=== PATIENT | male | born 1990 | race Caucasian/White ===

== ENCOUNTER 2021-06-30 12:01 | Emergency (ER) | payer MEDICAID, SELFPAY ==
--- NOTE | 2021-06-30 | ECG_ITS ---
Test Reason : NOT FEELING WELL Blood Pressure : / mmHG Vent. Rate : 113 BPM Atrial Rate : 113 BPM P-R Int : 136 ms QRS Dur : 116 ms QT Int : 350 ms P-R-T Axes : 034 -06 002 degrees QTc Int : 480 ms Sinus tachycardia Left ventricular hypertrophy with QRS widening ( R in aVL , [employer] product ) Abnormal ECG No previous ECGs available Referred By: Generic ED Physician Electronically Signed By:SADA TERRY MD
--- NOTE | ~2021-06-30 | XR_ITS ---
EXAMINATION: XR CHEST CLINICAL INFORMATION: Shortness of breath, cough COMPARISON: None TECHNIQUE: Frontal view of the chest was obtained. FINDINGS: There is subtle groundglass opacity mid right lung zone. The remainder of the lungs are clear. There is no lobar or segmental airspace consolidation or effusion. The costophrenic sulci are well-defined. The heart is normal in size. The hilar and mediastinal contours are unremarkable. XR/XR chest 1V IMPRESSION: Groundglass opacity mid right lung zone. No lobar or segmental airspace consolidation or effusion.
[2021-06-30 12:45] VITALS: BP 144/96; PULSE 120; RESP 17; TEMP 37.4; O2SAT 98; BMI 44.7
[2021-06-30 13:45] LABS: COVID-19 Test Positive (Negative)
--- NOTE | 2021-06-30 14:57 | ED.URI ---
HPI - URI/Sore Throat General Chief Complaint: Upper Respiratory Symptoms Stated Complaint: covid symptoms Time Seen by Provider: 06/30/21 14:00 Source: patient Mode of arrival: ambulatory Limitations: no limitations History of Present Illness HPI Narrative: 30-year-old male no known medical history presents to the emergency department with 4 days of progressively worsening cough, shortness of breath, fevers, chills and malaise. Patient tells me that he woke up on Saturday with a fever 101.0 F, ever since then he has been feeling unwell, he tells me that his cough has been intermittent in nature, he has been coughing up a thick white/clear mucus. He has been having intermittent fevers Tmax 102.0F. He becomes short of breath with ambulation, or wearing a mask. He tells me that he has also felt like his heart is racing. He is not vaccinated against COVID-19. He denies chest pain, nausea, vomiting, abdominal pain, weakness, dizziness, headache. MD elicited complaint: fever and cough Onset (ago): day(s) (4) Consistency: constant Severity: severe Description of mucous: clear and other (yellowish) Able to tolerate fluids by mouth: Yes Exacerbating factors: nothing Relieving factors: nothing Associated symptoms: fever, chills, diaphoresis and shortness of breath Treatments prior to arrival: none Related Data Previous Rx's Medication Instructions Recorded acetaminophen 325 mg capsule 650 mg PO Q6H PRN #20 cap 06/30/21 azithromycin 250 mg tablet See Rx Instructions PO .COMPLEX #6 06/30/21 tab Allergies Allergy/AdvReac Type Severity Reaction Status Date / Time amoxicillin [AMOXICILLIN] Allergy Unknown UNKNOWN Verified 06/30/21 12:45 penicillin V Allergy Unknown Unknown Verified 06/30/21 12:45 Penicillins [PENICILLINS] Allergy Unknown SWELLING Verified 06/30/21 12:45 Review of Systems Review of Systems: Constitutional : No Weight loss, + Fever, No Chills, No Fatigue, + Malaise, + night sweats ENT/Mouth : No sore throat, No Rhinorrhea, + loss of taste and smell Eyes: No Eye Pain, No Swelling, No Redness Cardiovascular : No Chest Pain, No SOB, No Dyspnea on Exertion, No Orthopnea, No Edema, + Palpitations Respiratory : + Cough, + Sputum, No Wheezing Gastrointestinal : No Nausea, No Vomiting, No Diarrhea, No Constipation, No abdominal Pain, No Hematochezia, No Melena Genitourinary : No Dysuria, No Urinary Frequency, No Hematuria, Musculoskeletal : No joint pain, No Myalgias, No Joint Swelling Skin : No Skin Lesions, No rash, + diaphoresis Neuro : No Weakness, No Numbness, No Dizziness, No Headache All other systems reviewed and are negative [facility] Past Medical History Attestation statement: The following information was validated with the patient. Source: old records reviewed and nursing notes reviewed Social History Social History Advance Directives: No Physical Exam Vital Signs: Vital Signs: Last Vital Signs Temp 99.3 F 06/30/21 12:45 Pulse 120 H 06/30/21 12:45 Resp 17 06/30/21 12:45 BP 144/96 H 06/30/21 12:45 Pulse Ox 98 06/30/21 12:45 Body Mass Index 44.7 Vital signs significant for HTN and tachycardia Appearance: Alert.? Oriented X3.? No acute distress.?Patient appears diaphoretic Head: Normocephalic, atraumatic, no step-offs or deformities Eyes: Pupils equal, round and reactive to light.? ENT: Pharynx normal.? Neck: Normal inspection.? Neck supple.? CVS: rapid heart rate and normal rhythm.? Pulses normal.? Respiratory: No respiratory distress.? Breath sounds slightly diminished bilaterally.? Abdomen: Soft and nontender.? Skin: Skin warm and dry.? Normal skin color.? Normal skin turgor.? Extremities: No lower extremity edema.? No calf ttp. 5/5 strength to bilateral upper and lower extremities Back: No midline tenderness, no C-spine tenderness, full range of motion, no CVA tenderness bilaterally Neuro: Oriented X 3.? No motor deficit.? No sensory deficit. Course Reevaluation(s) Reevaluation #1: Covid + brookeley responsible for patients symptoms. Cxray and EKG pending. Time: 15:00 Reevaluation #2: Chest x-ray shows ground-glass opacities, consistent with COVID-19 PNA. EKG- sinus tahcycardia Time: 15:54 Reevaluation #3: Ambulatory O2 96%. At this time patient's symptoms are likely secondary to COVID pneumonia. However, patient remains tachycardic, will order basic labs and d-dimer to r/o PE. Time: 16:20 Additional Reevaluation(s): 1718 Leukopenia noted, no electrolyte abnormalities, D-dimer less than 150, low suspicion for PE. At this time patient is safe for discharge home. He will be discharged home on azithromycin for COVID pneumonia. Patient has been given strict return precautions. He should follow-up with his PCP as soon as possible, he is safe for discharge home with PCP follow-up. Repeat vitals much better: BP 135/86 RR: 16 O2:98%RA Ambulatory O2:96%RA, RI 100 MDM - URI/Sore Throat MDM Narrative Medical decision making narrative: 1500 30-year-old male no known pmhx presents to the ED with productive cough of white/clear sputum, SOB, palpitations, fevers (Tmax 102F) and diaphoresis X4 days progressivly worsening. Not vaccinated. No chest pain. Upon physical examination patient appears diaphoretic, and ill appearing. S1-S2 appreciated with a regular rapid rhythm, likely sinus tachycardia. Lungs w/ diminished breathsounds bilaterally. Abdomen soft nontender nondistended. Moist mucous membranes. Extraocular movements intact. No neck pain./. No meningeal sings, No focal neuro deficits. 5/5 strength upper and lower extremities. 2+ reflexes equal bilateral. Cap refil <2 seconds. Plan at this time is to obtain a chest x-ray to rule out pneumonia. Obtain an EKG d/t palpitations and covid test. Medical Records Attestation: I reviewed the patient's medical records. Lab Data Attestation: I reviewed the patient's lab results. Result diagrams: 06/30/21 16:45 06/30/21 16:45 Labs: Lab Results 06/30/21 06/30/21 06/30/21 Range/Units 13:25 16:45 16:45 WBC 4.3 L (4.8-10.8) X10*3/uL RBC 5.54 (4.60-5.80) X10*6/uL Hgb 16.2 (14.0-18.0) g/dl Hct 47.9 (42.0-52.0) % MCV 86.5 (80.0-98.0) fL MCH 29.2 (27.0-33.0) pg MCHC 33.8 (31.0-36.0) g/dl RDW 12.7 (11.0-16.0) % Plt Count 185 (160-400) X10*3/uL MPV 10.3 (9.4-12.4) fL Immature Gran % (Auto) 0.5 H (0.0-0.4) % Neut % (Auto) 59.9 (45-73) % Lymph % (Auto) 24.6 (20-40) % [place] % (Auto) 14.8 H (2-11) % Eos % (Auto) 0.0 (0-4) % Baso % (Auto) 0.2 (0-2) % Lymph # (Auto) 1.1 L (1.2-4.9) X10*3/uL [place] # (Auto) 0.6 (0.1-1.2) X10*3/uL Eos # (Auto) 0.0 (0.0-0.4) X10*3/uL Baso # (Auto) 0.0 (0.0-0.2) X10*3/uL Abs Immat Gran (auto) 0.02 (0.00-0.03) X10*3/uL Absolute Neuts (auto) 2.6 (2.0-8.3) x10*3/uL Absolute Nucleated RBC 0.000 (0.0-0.012) X10*3/uL Nucleated RBC % (auto) 0.0 (0.0-0.2) /100WBC D-Dimer High Sensitivty < 150 NG/ML Sodium (135-145) mmol/L Potassium (3.3-5.1) mmol/L Chloride (96-108) mmol/L Carbon Dioxide (22-29) mmol/L Anion Gap (12-20) BUN (9-16) mg/dL Creatinine (0.5-1.4) mg/dL Estim Creat Clear Calc Estimated GFR Random Glucose (60-115) mg/dL Calcium (8.4-10.2) mg/dL Magnesium (1.6-2.6) mg/dL Total Bilirubin (0.0-1.0) mg/dL AST (5-37) U/L ALT (0-40) U/L Alkaline Phosphatase (39-117) U/L Total Protein (6.5-8.0) g/dL Albumin (3.5-5.0) g/dL COVID-19 (SAFIA) Positive A (Negative) COVID-19 Clin Com See Note 06/30/21 Range/Units 16:45 WBC (4.8-10.8) X10*3/uL RBC (4.60-5.80) X10*6/uL Hgb (14.0-18.0) g/dl Hct (42.0-52.0) % MCV (80.0-98.0) fL MCH (27.0-33.0) pg MCHC (31.0-36.0) g/dl RDW (11.0-16.0) % Plt Count (160-400) X10*3/uL MPV (9.4-12.4) fL Immature Gran % (Auto) (0.0-0.4) % Neut % (Auto) (45-73) % Lymph % (Auto) (20-40) % [place] % (Auto) (2-11) % Eos % (Auto) (0-4) % Baso % (Auto) (0-2) % Lymph # (Auto) (1.2-4.9) X10*3/uL [place] # (Auto) (0.1-1.2) X10*3/uL Eos # (Auto) (0.0-0.4) X10*3/uL Baso # (Auto) (0.0-0.2) X10*3/uL Abs Immat Gran (auto) (0.00-0.03) X10*3/uL Absolute Neuts (auto) (2.0-8.3) x10*3/uL Absolute Nucleated RBC (0.0-0.012) X10*3/uL Nucleated RBC % (auto) (0.0-0.2) /100WBC D-Dimer High Sensitivty NG/ML Sodium 135 (135-145) mmol/L Potassium 4.5 (3.3-5.1) mmol/L Chloride 103 (96-108) mmol/L Carbon Dioxide 19 L (22-29) mmol/L Anion Gap 18 (12-20) BUN 15 (9-16) mg/dL Creatinine 0.98 (0.5-1.4) mg/dL Estim Creat Clear Calc 162.9 Estimated GFR > 60 Random Glucose 106 (60-115) mg/dL Calcium 9.3 (8.4-10.2) mg/dL Magnesium 2.0 (1.6-2.6) mg/dL Total Bilirubin 0.4 (0.0-1.0) mg/dL AST 32 (5-37) U/L ALT 23 (0-40) U/L Alkaline Phosphatase 58 (39-117) U/L Total Protein 8.4 H (6.5-8.0) g/dL Albumin 4.5 (3.5-5.0) g/dL COVID-19 ([facility]IA) (Negative) COVID-19 Clin Com ECG Data Attestation: I personally reviewed and interpreted this ECG as follows: ECG interpretation time: 13:30 Prior ECG tracings: not available for review Interpretation: Ventricular rate of 113, RI normal, QRS normal, QT/QTC normal. EKG shows sinus tachycardia with left ventricular hypertrophy. No previous EKGs to compare with. No acute ischemia No ST elevations or inversions Critical Care Time Critical Care Time Critical Care Time: No Discharge Plan Discharge Clinical Impression: COVID-19, Pneumonia due to COVID-19 virus Patient Disposition: Home, Self-Care Instructions: COVID-19 (Coronavirus Disease 2019) (ED) Additional Instructions: Take your medications as prescribed. Today you tested positive for COVID-19. Take Ibuprofen or Tylenol as needed for fevers or body aches. Quarantine for 14 days if you are not vaccinated or for 10 days if you are vaccinated. Drink plenty of fluids. Follow-up with your primary care provider this week. Return to the emergency department with new or worsening symptoms. Such as worsening shortness of breath, fevers, chest pain, abdominal pain, nausea, vomiting, weakness In case of emergency call 911 Prescriptions: New acetaminophen 325 mg capsule 650 mg PO Q6H PRN (Reason: fever or pain) Qty: 20 RF: 0 azithromycin 250 mg tablet See Rx Instructions PO .COMPLEX Qty: 6 RF: 0 Referrals: [facility] [Primary Care Provider] - 2 days Stand Alone Forms: Work/School Release
[2021-06-30] MEDS: Acetaminophen 325 MG TABLET 650 MG PO (15:46)
[2021-06-30] MEDS: ondansetron HCL 4 MG/2 ML VIAL IVPUSH (16:37)
[2021-06-30] MEDS: 0.9 % Sodium Chloride 1,000 ML 999 ML IV (16:41)
[2021-06-30 16:51] LABS: MANUAL DIFF FLAG NO
[2021-06-30 16:52] LABS: Basophils Percent Auto 0.2 % (0-2); Hematocrit 47.9 % (42.0-52.0); Hemoglobin 16.2 g/dl (14.0-18.0); Imm Gran Abs Auto 0.02 X10*3/uL (0.00-0.03); Imm Gran Pct Auto 0.5 % (0.0-0.4); Lymphocytes Absolute Auto 1.1 X10*3/uL (1.2-4.9); Lymphocytes Percent Auto 24.6 % (20-40); Mean Corpuscular HGB Conc 33.8 g/dl (31.0-36.0); Mean Corpuscular Hemoglobin 29.2 pg (27.0-33.0); Mean Corpuscular Volume 86.5 fL (80.0-98.0); Mean Platelet Volume 10.3 fL (9.4-12.4); Monocytes Absolute Auto 0.6 X10*3/uL (0.1-1.2); Monocytes Percent Auto 14.8 % (2-11); Neutrophils Absolute Auto 2.6 x10*3/uL (2.0-8.3); Neutrophils Percent Auto 59.9 % (45-73); Platelet Count 185 X10*3/uL (160-400); Red Blood Count 5.54 X10*6/uL (4.60-5.80); Red Cell Distribution Width 12.7 % (11.0-16.0); White Blood Count 4.3 X10*3/uL (4.8-10.8)
[2021-06-30 17:02] LABS: D Dimer High Sensitivity < 150 NG/ML
[2021-06-30 17:14] LABS: Alanine Aminotransferase 23 U/L (0-40); Albumin Level 4.5 g/dL (3.5-5.0); Alkaline Phosphatase 58 U/L (39-117); Anion Gap 18 (12-20); Aspartate Amino Transferase 32 U/L (5-37); Bilirubin Total 0.4 mg/dL (0.0-1.0); Blood Urea Nitrogen 15 mg/dL (9-16); Calcium 9.3 mg/dL (8.4-10.2); Carbon Dioxide 19 mmol/L (22-29); Chloride 103 mmol/L (96-108); Creatinine Clr Calc Pharmacy 162.9; Estimated Glomerular Filt Rate > 60; Glucose Random 106 mg/dL (60-115); Potassium 4.5 mmol/L (3.3-5.1); Sodium 135 mmol/L (135-145); Total Protein 8.4 g/dL (6.5-8.0)
[2021-06-30] MEDS: Albuterol Sulfate 90 MCG 8 GM INHALER 2 PUFF INHALE (17:41)
== END 2021-06-30 17:43 | disposition home or self-care (01) ==
PROVIDERS: Physician Assistant; Emergency Provider Emergency Medicine
DX: U07.1 COVID-19 (principal); J12.82 Pneumonia due to coronavirus disease 2019; R06.02 Shortness of breath
CPT/HCPCS: 36415; 71045; 80053; 83735; 85025; 85379; 87635; 93005; 96361; 96374; 99284; J2405

== ENCOUNTER 2021-07-01 05:39 | Emergency (ER) | payer MEDICAID, SELFPAY ==
[2021-07-01 05:46] VITALS: BP 146/85; BP 170/93; PULSE 103; PULSE 95; RESP 20; O2SAT 96; O2SAT 97; BMI 44.7
--- NOTE | 2021-07-01 06:17 | ED_ITS ---
HPI - General Adult General Chief complaint: General Medical Stated complaint: chest pain (covid PNA) Time Seen by Provider: 07/01/21 06:06 Source: patient Mode of arrival: EMS History of Present Illness HPI narrative: This is a 30-year-old male without significant past medical history who was just diagnosed with COVID-19 earlier this evening and is unvaccinated. Patient states that he was suffering from anxiety as he feels that things were not well explained him. Patient has reproducible chest wall pain from coughing. Related Data Previous Rx's Medication Instructions Recorded acetaminophen 325 mg capsule 650 mg PO Q6H PRN #20 cap 06/30/21 azithromycin 250 mg tablet See Rx Instructions PO .COMPLEX #6 06/30/21 tab Allergies Allergy/AdvReac Type Severity Reaction Status Date / Time amoxicillin [AMOXICILLIN] Allergy Unknown UNKNOWN Verified 06/30/21 12:45 penicillin V Allergy Unknown Unknown Verified 06/30/21 12:45 Penicillins [PENICILLINS] Allergy Unknown SWELLING Verified 06/30/21 12:45 Review of Systems Review of Systems: Pertinent positives and negatives as stated in HPI 10 point review of systems is otherwise negative. PMFSH Past Medical History Source: nursing notes reviewed Social History Social History Alcohol intake: current Alcohol intake frequency: holidays/special occasions only Alcohol type: beer Patient Tobacco Use Status: Current someday Tobacco user Use of substances other than those prescribed or required for medical reasons: Yes Substance Use Type: Marijuana Substance Use Frequency: Occasionally Substance Use Frequency Other:: 2 Last Used Substance: Days (ago) Any prior treatment program specific to substance use: No Advance Directives: No Physical Exam Vital Signs: Vital Signs: Last Vital Signs Pulse 95 07/01/21 05:46 Resp 20 07/01/21 05:46 BP 146/85 H 07/01/21 05:46 Pulse Ox 96 07/01/21 05:46 Body Mass Index 44.7 VITAL SIGNS: Reviewed. GENERAL: Well developed, well nourished, in no acute distress. HEAD: Normocephalic/atraumatic EYES: PERRLA, EOMI OROPHARYNX: no oral lesions noted, posterior pharynx clear LUNGS: Normal breath sounds. No adventitious sounds or accessory muscle use. SpO2<96>, reproducible chest wall pain on palpation CARDIOVASCULAR: Regular rate and rhythm without noted murmurs, no JVD or lower extremity edema. ABDOMEN: Soft, non-tender, non-distended with bowel sounds. SKIN: Inspection of the skin reveals no rashes NEUROLOGIC: Alert and oriented x 4. Strength and sensation to light touch were grossly intact x 4. Course Course Course Narrative: 30-year-old male with history and clinical presentation consistent with anxiety symptoms and all prior investigations were reviewed and were very thorough and complete. Patient is oxygenating well, not tachypneic, and is afebrile. Patient was provided with a 1 time dose of hydroxyzine and his symptoms as well as the infection course were discussed with him at bedside and he states that he feels much better. He is otherwise discharged home in stable condition with strict instructions to remain quarantine. Discharge Plan Discharge Clinical Impression: COVID-19, Chest wall pain Patient Disposition: Home, Self-Care Additional Instructions: Stay self quarantine as per all state and Federal guidelines. Schedule a telemedicine appointment with your primary care provider for re- evaluation. Prescriptions: No Action acetaminophen 325 mg capsule 650 mg PO Q6H PRN (Reason: fever or pain) Qty: 20 RF: 0 azithromycin 250 mg tablet See Rx Instructions PO .COMPLEX Qty: 6 RF: 0
[2021-07-01] MEDS: hydrOXYzine HCL 25 MG TABLET PO (06:20)
== END 2021-07-01 07:00 | disposition home or self-care (01) ==
PROVIDERS: Emergency Provider Student in an Organized Health Care Education/Training Program
DX: U07.1 COVID-19 (principal); R07.89 Other chest pain
CPT/HCPCS: 99283

== ENCOUNTER 2022-09-09 19:47 | Emergency (ER) | payer MEDICAID, SELFPAY ==
--- NOTE | ~2022-09-09 | XR_ITS ---
EXAMINATION: XR CHEST CLINICAL INFORMATION: Chest pain COMPARISON: Chest x-ray 06/30/2021 TECHNIQUE: Frontal view of the chest was obtained. 8:12 PM FINDINGS: No significant abnormality is noted involving the heart, lungs, mediastinum, bony thorax or soft tissues. XR/XR chest 1V IMPRESSION: Unremarkable examination.
--- NOTE | 2022-09-09 19:49 | ECG_ITS ---
Test Reason : palapatitions Blood Pressure : / mmHG Vent. Rate : 117 BPM Atrial Rate : 117 BPM P-R Int : 142 ms QRS Dur : 118 ms QT Int : 352 ms P-R-T Axes : 058 -11 019 degrees QTc Int : 491 ms Sinus tachycardia Non-specific intra-ventricular conduction delay Borderline ECG When compared with ECG of 30-JUN-2021 13:30, No significant change was found Referred By: Generic ED Physician Electronically Signed By:MICHELLE VARGHESE MD
--- NOTE | 2022-09-09 19:50 | ED_ITS ---
HPI - Chest Pain General Chief Complaint: Arrhythmia/Palpitations <LUTHER Shaikh - Last Filed: 09/09/22 19:58> Stated Complaint: palpitations/ referred by Dr Naina Reid <LUTHER Shaikh - Last Filed: 09/09/22 19:58> Time Seen by Provider: 09/09/22 22:28 <LUTHER Shaikh - Last Filed: 09/09/22 19:58> Source: patient <Joe Aviles MD - Last Filed: 09/10/22 00:54> Mode of arrival: ambulatory <Joe Aviles MD - Last Filed: 09/10/22 00:54> Limitations: no limitations <Joe Aviles MD - Last Filed: 09/10/22 00:54> History of Present Illness HPI narrative: Patient 300 lb obese with questionable sleep apnea sent from urgent care center as patient been having right-sided chest pain for last 2 days 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 noticed to have heart rate of 108 beats per minute patient noticed heart rate fluctuating between 100- 130 at home has some chest pain on the right side no shortness of breath no wheezing no cough no fever no chills no syncope episode <Joe Aviles MD - Last Filed: 09/10/22 00:54> Related Data Home Medications: Previous Rx's Medication Instructions Recorded acetaminophen 325 mg capsule 650 mg PO Q6H PRN fever or pain 06/30/21 #20 caps azithromycin 250 mg tablet See Rx Instructions PO .COMPLEX #6 06/30/21 tabs <LUTHER Shaikh - Last Filed: 09/09/22 19:58> Allergies/Adverse Reactions: Allergies Allergy/AdvReac Type Severity Reaction Status Date / Time amoxicillin [AMOXICILLIN] Allergy Unknown UNKNOWN Verified 06/30/21 12:45 penicillin V Allergy Unknown Unknown Verified 06/30/21 12:45 Penicillins [PENICILLINS] Allergy Unknown SWELLING Verified 06/30/21 12:45 <LUTHER Shaikh - Last Filed: 09/09/22 19:58> Review of Systems Review of Systems: Yes all other systems are reviewed and are negative <Joe Aviles MD - Last Filed: 09/10/22 00:54> [facility] Social History Social History: Social History Alcohol intake: current Alcohol intake frequency: a few times a month Alcohol type: beer Patient Tobacco Use Status: Current someday Tobacco user Smoked in Last 30 Days: Yes Use of substances other than those prescribed or required for medical reasons: Yes Substance Use Type: Marijuana Advance Directives: No Advance Directives Information Provided: No <LUTHER Shaikh - Last Filed: 09/09/22 19:58> Physical Exam Vital Signs: Vital Signs: Last Vital Signs Temp 98.0 F 09/09/22 23:38 Pulse 87 09/09/22 23:38 Resp 22 H 09/09/22 23:38 BP 139/89 09/09/22 23:38 Pulse Ox 99 09/09/22 23:38 O2 Del Method 09/09/22 23:38 BMI result Body Mass Index 45.6 <LUTHER Shaikh - Last Filed: 09/09/22 19:58> Vital Signs: Last Vital Signs Temp 98.0 F 09/09/22 23:38 Pulse 87 09/09/22 23:38 Resp 22 H 09/09/22 23:38 BP 139/89 09/09/22 23:38 Pulse Ox 99 09/09/22 23:38 O2 Del Method 09/09/22 23:38 BMI result Body Mass Index 45.6 <Joe Aviles MD - Last Filed: 09/10/22 00:54> Appearance: Alert. Oriented X3. No acute distress. Obese Eyes: No pallor or icterus ENT: Pharynx normal. Oral Mucosa moist Neck: Normal inspection. Neck supple. CVS: Normal heart rate and rhythm. Pulses normal. Respiratory: No respiratory distress. Equal air entry bilateral, no wheezing/rales/rhonchi Abdomen: Soft and nontender. Bowel sounds are present, no mass palpable, no CVA tenderness Skin: Skin warm and dry. Normal skin color. Normal skin turgor. Extremities: No lower extremity edema. No calf tendernessNo sensory deficit.No cerebellar signs , cranial nerves II-XII intact <Joe Aviles MD - Last Filed: 09/10/22 00:54> Course Course Course Narrative: RME-- 31yo M with no significant past medical history presenting to the ED sent in from for intermittent palpitations x2 days with mild chest discomfort. Reports hx anxiety, not sure if this is related. Denies SOB, pedal edema, N/V Anxious HR 116-103 in triage. EKG sinus tachycardia from EKG, Labs, CXR, COVID/FLU ordered <LUTHER Shaikh - Last Filed: 09/09/22 19:58> Medical Decision Making Medical Decision Making [facility] Narrative: Patient obese with tachycardia clinically has sleep apnea D-dimer negative workup negative for acute cardiac event. 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 <Joe Aviles MD - Last Filed: 09/10/22 00:54> Result Diagrams: 09/09/22 21:05 09/09/22 21:05 <LUTHER Shaikh - Last Filed: 09/09/22 19:58> Labs: Lab Results 09/09/22 09/09/22 09/09/22 Range/Units 21:05 21:05 21:05 WBC 13.8 H (4.8-10.8) X10*3/uL RBC 5.25 (4.60-5.80) X10*6/uL Hgb 14.9 (14.0-18.0) g/dl Hct 44.5 (42.0-52.0) % MCV 84.8 (80.0-98.0) fL MCH 28.4 (27.0-33.0) pg MCHC 33.5 (31.0-36.0) g/dl RDW 13.4 (11.0-16.0) % Plt Count 352 D (160-400) X10*3/uL MPV 9.6 (9.4-12.4) fL Immature Gran % (Auto) 0.3 (0.0-0.4) % Neut % (Auto) 71.3 (45-73) % Lymph % (Auto) 20.5 (20-40) % [place] % (Auto) 7.2 (2-11) % Eos % (Auto) 0.4 (0-4) % Baso % (Auto) 0.3 (0-2) % Lymph # (Auto) 2.8 (1.2-4.9) X10*3/uL [place] # (Auto) 1.0 (0.1-1.2) X10*3/uL Eos # (Auto) 0.1 (0.0-0.4) X10*3/uL Baso # (Auto) 0.0 (0.0-0.2) X10*3/uL Abs Immat Gran (auto) 0.04 H (0.00-0.03) X10*3/uL Absolute Neuts (auto) 9.9 H (2.0-8.3) x10*3/uL Absolute Nucleated RBC 0.000 (0.0-0.012) X10*3/uL Nucleated RBC % (auto) 0.0 (0.0-0.2) /100WBC PT (10.0-13.1) SEC INR (0.9-1.1) D-Dimer High Sensitivty NG/ML Sodium 140 (135-145) mmol/L Potassium 3.6 (3.3-5.1) mmol/L Chloride 104 (96-108) mmol/L Carbon Dioxide 24 (22-29) mmol/L Anion Gap 16 (12-20) BUN 15 (9-16) mg/dL Creatinine 0.87 (0.5-1.4) mg/dL Estim Creat Clear Calc 183.6 Estimated GFR > 60 Random Glucose 105 (60-115) mg/dL Calcium 10.0 D (8.4-10.2) mg/dL Magnesium 2.0 (1.6-2.6) mg/dL Total Bilirubin 0.9 (0.0-1.0) mg/dL Direct Bilirubin 0.2 (0.0-0.5) mg/dL AST 14 (5-37) U/L ALT 16 (0-40) U/L Alkaline Phosphatase 65 (39-117) U/L Troponin I High Sens < 3.5 (<3.5-35.0) ng/L Total Protein 7.6 (6.5-8.0) g/dL Albumin 4.6 (3.5-5.0) g/dL TSH 0.85 (0.32-4.0) uIU/mL COVID-19 ([facility]) (Negative) COVID-19 Clin Com 09/09/22 09/09/22 Range/Units 21:05 21:05 WBC (4.8-10.8) X10*3/uL RBC (4.60-5.80) X10*6/uL Hgb (14.0-18.0) g/dl Hct (42.0-52.0) % MCV (80.0-98.0) fL MCH (27.0-33.0) pg MCHC (31.0-36.0) g/dl RDW (11.0-16.0) % Plt Count (160-400) X10*3/uL MPV (9.4-12.4) fL Immature Gran % (Auto) (0.0-0.4) % Neut % (Auto) (45-73) % Lymph % (Auto) (20-40) % [place] % (Auto) (2-11) % Eos % (Auto) (0-4) % Baso % (Auto) (0-2) % Lymph # (Auto) (1.2-4.9) X10*3/uL [place] # (Auto) (0.1-1.2) X10*3/uL Eos # (Auto) (0.0-0.4) X10*3/uL Baso # (Auto) (0.0-0.2) X10*3/uL Abs Immat Gran (auto) (0.00-0.03) X10*3/uL Absolute Neuts (auto) (2.0-8.3) x10*3/uL Absolute Nucleated RBC (0.0-0.012) X10*3/uL Nucleated RBC % (auto) (0.0-0.2) /100WBC PT 13.0 (10.0-13.1) SEC INR 1.1 (0.9-1.1) D-Dimer High Sensitivty < 150 NG/ML Sodium (135-145) mmol/L Potassium (3.3-5.1) mmol/L Chloride (96-108) mmol/L Carbon Dioxide (22-29) mmol/L Anion Gap (12-20) BUN (9-16) mg/dL Creatinine (0.5-1.4) mg/dL Estim Creat Clear Calc Estimated GFR Random Glucose (60-115) mg/dL Calcium (8.4-10.2) mg/dL Magnesium (1.6-2.6) mg/dL Total Bilirubin (0.0-1.0) mg/dL Direct Bilirubin (0.0-0.5) mg/dL AST (5-37) U/L ALT (0-40) U/L Alkaline Phosphatase (39-117) U/L Troponin I High Sens (<3.5-35.0) ng/L Total Protein (6.5-8.0) g/dL Albumin (3.5-5.0) g/dL TSH (0.32-4.0) uIU/mL COVID-19 ([facility]) Negative (Negative) COVID-19 Clin Com See Note <LUTHER Shaikh - Last Filed: 09/09/22 19:58> Lab Results 09/09/22 09/09/22 09/09/22 Range/Units 21:05 21:05 21:05 WBC 13.8 H (4.8-10.8) X10*3/uL RBC 5.25 (4.60-5.80) X10*6/uL Hgb 14.9 (14.0-18.0) g/dl Hct 44.5 (42.0-52.0) % MCV 84.8 (80.0-98.0) fL MCH 28.4 (27.0-33.0) pg MCHC 33.5 (31.0-36.0) g/dl RDW 13.4 (11.0-16.0) % Plt Count 352 D (160-400) X10*3/uL MPV 9.6 (9.4-12.4) fL Immature Gran % (Auto) 0.3 (0.0-0.4) % Neut % (Auto) 71.3 (45-73) % Lymph % (Auto) 20.5 (20-40) % [place] % (Auto) 7.2 (2-11) % Eos % (Auto) 0.4 (0-4) % Baso % (Auto) 0.3 (0-2) % Lymph # (Auto) 2.8 (1.2-4.9) X10*3/uL [place] # (Auto) 1.0 (0.1-1.2) X10*3/uL Eos # (Auto) 0.1 (0.0-0.4) X10*3/uL Baso # (Auto) 0.0 (0.0-0.2) X10*3/uL Abs Immat Gran (auto) 0.04 H (0.00-0.03) X10*3/uL Absolute Neuts (auto) 9.9 H (2.0-8.3) x10*3/uL Absolute Nucleated RBC 0.000 (0.0-0.012) X10*3/uL Nucleated RBC % (auto) 0.0 (0.0-0.2) /100WBC PT (10.0-13.1) SEC INR (0.9-1.1) D-Dimer High Sensitivty NG/ML Sodium 140 (135-145) mmol/L Potassium 3.6 (3.3-5.1) mmol/L Chloride 104 (96-108) mmol/L Carbon Dioxide 24 (22-29) mmol/L Anion Gap 16 (12-20) BUN 15 (9-16) mg/dL Creatinine 0.87 (0.5-1.4) mg/dL Estim Creat Clear Calc 183.6 Estimated GFR > 60 Random Glucose 105 (60-115) mg/dL Calcium 10.0 D (8.4-10.2) mg/dL Magnesium 2.0 (1.6-2.6) mg/dL Total Bilirubin 0.9 (0.0-1.0) mg/dL Direct Bilirubin 0.2 (0.0-0.5) mg/dL AST 14 (5-37) U/L ALT 16 (0-40) U/L Alkaline Phosphatase 65 (39-117) U/L Troponin I High Sens < 3.5 (<3.5-35.0) ng/L Total Protein 7.6 (6.5-8.0) g/dL Albumin 4.6 (3.5-5.0) g/dL TSH 0.85 (0.32-4.0) uIU/mL COVID-19 ([facility]) (Negative) COVID-19 Clin Com 09/09/22 09/09/22 Range/Units 21:05 21:05 WBC (4.8-10.8) X10*3/uL RBC (4.60-5.80) X10*6/uL Hgb (14.0-18.0) g/dl Hct (42.0-52.0) % MCV (80.0-98.0) fL MCH (27.0-33.0) pg MCHC (31.0-36.0) g/dl RDW (11.0-16.0) % Plt Count (160-400) X10*3/uL MPV (9.4-12.4) fL Immature Gran % (Auto) (0.0-0.4) % Neut % (Auto) (45-73) % Lymph % (Auto) (20-40) % [place] % (Auto) (2-11) % Eos % (Auto) (0-4) % Baso % (Auto) (0-2) % Lymph # (Auto) (1.2-4.9) X10*3/uL [place] # (Auto) (0.1-1.2) X10*3/uL Eos # (Auto) (0.0-0.4) X10*3/uL Baso # (Auto) (0.0-0.2) X10*3/uL Abs Immat Gran (auto) (0.00-0.03) X10*3/uL Absolute Neuts (auto) (2.0-8.3) x10*3/uL Absolute Nucleated RBC (0.0-0.012) X10*3/uL Nucleated RBC % (auto) (0.0-0.2) /100WBC PT 13.0 (10.0-13.1) SEC INR 1.1 (0.9-1.1) D-Dimer High Sensitivty < 150 NG/ML Sodium (135-145) mmol/L Potassium (3.3-5.1) mmol/L Chloride (96-108) mmol/L Carbon Dioxide (22-29) mmol/L Anion Gap (12-20) BUN (9-16) mg/dL Creatinine (0.5-1.4) mg/dL Estim Creat Clear Calc Estimated GFR Random Glucose (60-115) mg/dL Calcium (8.4-10.2) mg/dL Magnesium (1.6-2.6) mg/dL Total Bilirubin (0.0-1.0) mg/dL Direct Bilirubin (0.0-0.5) mg/dL AST (5-37) U/L ALT (0-40) U/L Alkaline Phosphatase (39-117) U/L Troponin I High Sens (<3.5-35.0) ng/L Total Protein (6.5-8.0) g/dL Albumin (3.5-5.0) g/dL TSH (0.32-4.0) uIU/mL COVID-19 ([facility]) Negative (Negative) COVID-19 Clin Com See Note <Joe Aviles MD - Last Filed: 09/10/22 00:54> Independent Interpretation I performed an independent interpretation of an: EKG <Joe Aviles MD - Last Filed: 09/10/22 00:54> Interpretation: Sinus tachycardia heart rate 117 beats per minute no interval normal axis no acute ST wave changes <Joe Aviles MD - Last Filed: 09/10/22 00:54> Discharge Plan Discharge Clinical Impression: Sinus tachycardia, Palpitations <LUTHER Shaikh - Last Filed: 09/09/22 19:58> Patient Disposition: Home, Self-Care <LUTHER Shaikh - Last Filed: 09/09/22 19:58> Instructions: Heart Palpitations (ED) <LUTHER Shaikh - Last Filed: 09/09/22 19:58> Additional Instructions: Decrease caffeine intake sleeps well , you likely have sleep apnea and need further investigation Follow-up with your PCP/foreign trade teacher and 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 for further workup including for sleep studies and Holter monitoring Report to the ER if syncope episode/worsening of the chest pain or shortness of breath <LUTHER Shaikh - Last Filed: 09/09/22 19:58> Prescriptions: No Action acetaminophen 325 mg capsule 650 mg PO Q6H PRN (Reason: fever or pain) Qty: 20 0RF azithromycin 250 mg tablet See Rx Instructions PO .COMPLEX Qty: 6 0RF Rx Instructions: For 250 mg dose pack: take 500 mg today (day 1), then 250 mg for 4 days (days 2-5) <LUTHER Shaikh - Last Filed: 09/09/22 19:58> Referrals: Cecil Ledesma MD [Physician] - 1 week Jeremiah Wharton MD [Physician] - 1 week <LUTHER Shaikh - Last Filed: 09/09/22 19:58> Interventions: ED Discharge Assessment Last Done: 09/10/22 00:16 <LUTHER Shaikh - Last Filed: 09/09/22 19:58> Discharge Date/Time: 09/10/22 00:23 <LUTHER Shaikh - Last Filed: 09/09/22 19:58>
[2022-09-09 19:51] VITALS: BP 148/87; PULSE 97; RESP 18; TEMP 36; O2SAT 98; BMI 45.6
[2022-09-09 21:19] LABS: MANUAL DIFF FLAG NO
[2022-09-09 21:21] LABS: Basophils Percent Auto 0.3 % (0-2); Eosinophils Absolute Auto 0.1 X10*3/uL (0.0-0.4); Eosinophils Percent Auto 0.4 % (0-4); Hematocrit 44.5 % (42.0-52.0); Hemoglobin 14.9 g/dl (14.0-18.0); Imm Gran Abs Auto 0.04 X10*3/uL (0.00-0.03); Imm Gran Pct Auto 0.3 % (0.0-0.4); Lymphocytes Absolute Auto 2.8 X10*3/uL (1.2-4.9); Lymphocytes Percent Auto 20.5 % (20-40); Mean Corpuscular HGB Conc 33.5 g/dl (31.0-36.0); Mean Corpuscular Hemoglobin 28.4 pg (27.0-33.0); Mean Corpuscular Volume 84.8 fL (80.0-98.0); Mean Platelet Volume 9.6 fL (9.4-12.4); Monocytes Percent Auto 7.2 % (2-11); Neutrophils Absolute Auto 9.9 x10*3/uL (2.0-8.3); Neutrophils Percent Auto 71.3 % (45-73); Platelet Count 352 X10*3/uL (160-400); Red Blood Count 5.25 X10*6/uL (4.60-5.80); Red Cell Distribution Width 13.4 % (11.0-16.0); White Blood Count 13.8 X10*3/uL (4.8-10.8)
[2022-09-09 21:31] LABS: INTERNATIONAL NORM RATIO 1.1 (0.9-1.1)
[2022-09-09 21:48] LABS: Alanine Aminotransferase 16 U/L (0-40); Albumin Level 4.6 g/dL (3.5-5.0); Alkaline Phosphatase 65 U/L (39-117); Anion Gap 16 (12-20); Aspartate Amino Transferase 14 U/L (5-37); Bilirubin Direct 0.2 mg/dL (0.0-0.5); Bilirubin Total 0.9 mg/dL (0.0-1.0); Blood Urea Nitrogen 15 mg/dL (9-16); Carbon Dioxide 24 mmol/L (22-29); Chloride 104 mmol/L (96-108); Creatinine Clr Calc Pharmacy 183.6; Estimated Glomerular Filt Rate > 60; Glucose Random 105 mg/dL (60-115); Potassium 3.6 mmol/L (3.3-5.1); Sodium 140 mmol/L (135-145); Total Protein 7.6 g/dL (6.5-8.0)
[2022-09-09 21:53] LABS: Troponin-I High Sensitivity < 3.5 ng/L (<3.5-35.0)
[2022-09-09 21:55] LABS: COVID-19 Test Negative (Negative); IDNOW Serial# 6674DD1D
[2022-09-09 22:02] LABS: TSH reflex Free T4 0.85 uIU/mL (0.32-4.0)
[2022-09-09 22:54] VITALS: BP 131/80; PULSE 89; RESP 16; TEMP 36.8; O2SAT 98
[2022-09-09 23:38] VITALS: BP 139/89; PULSE 87; RESP 22; TEMP 36.7; O2SAT 99
[2022-09-09 23:47] LABS: D Dimer High Sensitivity < 150 NG/ML
== END 2022-09-10 00:23 | disposition home or self-care (01) ==
PROVIDERS: Physician Assistant; Emergency Provider Internal Medicine
DX: I49.9 Cardiac arrhythmia, unspecified (principal); R00.2 Palpitations; F17.210 Nicotine dependence, cigarettes, uncomplicated; Z20.822 Contact with and (suspected) exposure to COVID-19; Z20.828 Contact with and (suspected) exposure to other viral communicable diseases; Z71.6 Tobacco abuse counseling; Z79.899 Other long term (current) drug therapy
CPT/HCPCS: 36415; 71045; 80048; 80076; 83735; 84443; 84484; 85025; 85379; 85610; 87635; 93005; 99285